=== PATIENT | female | born 1985 | race Caucasian/White ===

== ENCOUNTER 2023-07-27 18:44 | Emergency (ER) | payer OTHER, SELFPAY ==
--- NOTE | 2023-07-27 | ECG_ITS ---
Test Reason : CHEST PAIN Blood Pressure : / mmHG Vent. Rate : 076 BPM Atrial Rate : 076 BPM P-R Int : 154 ms QRS Dur : 082 ms QT Int : 410 ms P-R-T Axes : 053 062 033 degrees QTc Int : 461 ms Normal sinus rhythm Normal ECG No previous ECGs available Referred By: Doreen Torre Electronically Signed By:CRISTELA JERONIMO
--- NOTE | ~2023-07-27 | CT_ITS ---
EXAMINATION: CTA CHEST CT ABDOMEN AND PELVIS WITH CONTRAST CLINICAL INFORMATION: Abdominal pain. Epigastric pain to the back. Pleurisy. COMPARISON: None. TECHNIQUE: A noncontrast localizer was performed, followed by the administration of 85 mL Omnipaque [address] of the chest was then performed. Coronal and sagittal reformatted and 3-D technique MIP images of the chest were completed at the CT scanner and reviewed on the PACS workstation. No adverse effects were reported. Images were then performed through the abdomen and pelvis. Coronal and sagittal reformatted images performed at CT scanner by technologist. [This CT examination was performed using dose optimization techniques as appropriate, variously including the following: *Automated exposure control *Adjustment of mA and/or kV according to patient size (this includes techniques or standardized protocols for targeted exams where dose is matched to indication/reason for exam; i.e. extremities or head) *Use of iterative reconstruction technique] DLP: 983 mGy-cm. FINDINGS: CTA CHEST Vascular: The main pulmonary artery, secondary and tertiary branches of the pulmonary artery are normally opacified with no evidence of pulmonary embolism. The aorta and great vessels are unremarkable. Mediastinum: No mediastinal mass. No significant lymphadenopathy. There is no pericardial effusion. CORONARY ARTERIES: Volume of coronary calcification:None Lungs: The lungs are clear. No nodule or infiltrate. Central bronchial airways open. Fluid: There is no pericardial effusion. There is no pleural effusion. Axilla: No significant lymphadenopathy. CT SCAN ABDOMEN/PELVIS: Liver, Gallbladder and Biliary Tree: The liver is normal in size, shape, and attenuation. No focal hepatic lesion or biliary ductal dilatation is present. Small gallstones layering dependently in the fundus the gallbladder. No edema around the gallbladder. Extrahepatic CBD measures 6 mm. No calcified stone in the bile ducts. Pancreas: Unremarkable. Spleen: Unremarkable. Adrenal Glands: Unremarkable. Kidneys and Ureters: The kidneys are normal in size, shape, and attenuation. No hydronephrosis, hydroureter, or calculi seen. No perinephric stranding. Bladder: Unremarkable. Gastrointestinal Tract: The small and large bowel are unremarkable. The appendix is unremarkable. Abdominal Wall: No significant hernia is appreciated. Lymph Nodes: Normal. Vascular: Unremarkable. Pelvic Viscera: Unremarkable. Osseous Structures: Unremarkable. CT/CT abdomen pelvis w IV con IMPRESSION: CT CHEST: No evidence of pulmonary embolism. No acute change of chest. CT ABDOMEN PELVIS: 1. No acute abnormality the abdomen or pelvis. 2. Cholelithiasis.
[2023-07-27 19:01] VITALS: BP 133/87; BP 135/72; PULSE 88; PULSE 94; RESP 18; TEMP 36.4; O2SAT 99; BMI 34.2
[2023-07-27 19:12] VITALS: PULSE 80
--- NOTE | 2023-07-27 19:25 | ED_ITS ---
HPI - Chest Pain General Chief Complaint: Chest Pain Stated Complaint: chest pain 01/05 Time Seen by Provider: 07/27/23 18:51 Source: patient Mode of arrival: ambulatory Limitations: no limitations History of Present Illness HPI narrative: 37-year-old female healthy presents to ED for intermittent epigastric pain since March that resolved with belching and some GI meds. Patient states today she had epigastric pain that was severe radiating to the back. Patient also states some pleurisy. Patient states symptoms improved with Pepto-Bismol, but came to the ED for evaluation. Patient is still having some epigastric pain, pleurisy, and mild chest discomfort. Patient denies any leg swelling, calf pain, coughing up blood, fever, or chills. Related Data Allergies Allergy/AdvReac Type Severity Reaction Status Date / Time No Known Allergies Allergy Verified 07/27/23 19:17 Review of Systems 2 Review of Systems: Patient states intermittent epigastric pain radiating to back since March. Patient states slight pleurisy. Patient denies any nausea vomiting Yes all other systems are reviewed and are negative Physical Exam 2 Vital Signs: Vital Signs: Last Vital Signs Temp 97.9 F 07/28/23 00:16 Pulse 88 07/28/23 00:16 Resp 18 07/28/23 00:16 BP 138/78 07/28/23 00:16 Pulse Ox 98 07/28/23 00:16 O2 Del Method Room Air 07/28/23 00:16 BMI result Body Mass Index 34.2 Const: General: cooperative, healthy appearing, comfortable, no acute distress, well developed, alert, awake and Physically active O rientation/consciousness: oriented to person, oriented to place, oriented to time and patient oriented x3 HEENT: Head: Yes normal to inspection, Yes No palpable skull fracture present, Yes normocephalic and Yes atraumatic Eyes: General: appearance normal, both eyes and all related structures Neck: Neck: Yes normal visual inspection, Yes full ROM, Yes no lymphadenopathy, Yes no meningeal signs, Yes trachea midline, Yes supple, No anterior neck swelling and No tender Chest: Chest palpation & inspection: normal inspection of the chest and normal palpation of entire chest wall Resp: Effort & Inspection: normal respiratory effort and able to speak in complete sentences Auscultation: clear to auscultation bilaterally Cardio: Jugular venous distension: no JVD Heart sounds: S1 normal heart sound present and S2 normal heart sound present GI: Inspection: Yes normal to inspection Palpation (GI): Tenderness to palpation present (GI) in the epigastrum and in the RUQ, no guarding and not rigid : General: No CVA tenderness and Yes no CVA tenderness Back/Spine/Pelvis: Back: no CVA tenderness, No CVA tenderness and No back tenderness Skin: General skin exam: no rashes or lesions noted, elasticity normal and turgor normal Neuro: General: oriented to person, oriented to place, oriented to time, patient oriented x3, gait normal, tone normal, moves all extremities, Normal light touch and pain sensation, no meningeal signs, no focal motor deficits, CN's II-XI intact bilaterally and normal sensation to monofilament Extrem: Other: Bilateral lower extremities negative for swelling, pitting edema, or calf tenderness General: Yes normal to inspection, Yes full ROM and Yes capillary refill normal Psych: Appearance: grossly normal, well kempt and not disheveled Medications Administered Discontinued Medications Generic Name Dose Route Start Last Admin Trade Name Jase PRN Reason Stop Dose Admin Al Hydroxide/Mg Hydroxide 30 ml 07/27/23 19:23 07/27/23 19:56 Magnesium Hydrox/Alum Hydrox 30 Ml Oral.Susp PO 07/27/23 19:24 30 ml ONCE ONE Administration Famotidine 20 mg 07/27/23 19:18 07/27/23 19:56 Famotidine/Pf 20 Mg/2 Ml Vial IVPUSH 07/27/23 19:19 20 mg ONCE ONE Administration Sodium Chloride 1,000 mls @ 999 mls/hr 07/27/23 19:17 07/27/23 21:12 Ns IV 07/27/23 20:17 Infused .Q1H1M STA Infusion Iohexol 85 ml 07/27/23 21:44 07/27/23 21:44 Iohexol 350 Mg/Ml 100 Ml Infus..Btl IV 07/27/23 21:45 85 ml ONCE ONE Administration Medical Decision Making Medical Decision Making [facility] Narrative: 37-year-old female presents to ED for epigastric pain radiating to back with pleurisy and sometimes intermittent chest pain. Patient denies any leg swelling, calf pain, coughing up blood. Patient states slight improvement with Pepcid. EKG labs D-dimer ordered. 12:01am: 2nd troponin negative. Chest CTA negative for PE or pneumonia. Abdominal CT scan positive for Cholelethias withouth cholecysitis. Patient informed to follow-up with primary care provider. Patient is . Patient can only take motrin. Patient explained worrisome signs and informed to return to the ED she has them Differential Diagnosis Differential Diagnoses: The differential diagnosis associated with the presentation includes (PE, myocardial infarction, GERD, epiglottitis.) Admission/Observation Consideration of admission/observation: Escalation of care including admission/observation considered Lab Data MDM Lab Attestation statement: I reviewed the patient's lab results. 07/27/23 19:21 07/27/23 19:21 Labs: Lab Results 07/27/23 07/27/23 07/27/23 Range/Units 19:21 20:39 23:17 WBC 9.8 (4.8-10.8) X10*3/uL RBC 4.31 (4.20-5.50) X10*6/uL Hgb 12.3 (12.0-16.0) g/dl Hct 36.2 L (37.0-47.0) % MCV 84.0 (80.0-98.0) fL MCH 28.5 (27.0-33.0) pg MCHC 34.0 (31.0-35.0) g/dl RDW 12.9 (11.0-16.0) % Plt Count 249 (160-400) X10*3/uL MPV 10.7 (9.4-12.3) fL Immature Gran % (Auto) 0.3 (0.0-0.4) % Neut % (Auto) 65.4 (45-73) % Lymph % (Auto) 23.7 (20-40) % Camp % (Auto) 8.2 (2-11) % Eos % (Auto) 2.0 (0-4) % Baso % (Auto) 0.4 (0-2) % Lymph # (Auto) 2.3 (1.2-4.9) X10*3/uL Camp # (Auto) 0.8 (0.1-1.2) X10*3/uL Eos # (Auto) 0.2 (0.0-0.4) X10*3/uL Baso # (Auto) 0.0 (0.0-0.2) X10*3/uL Abs Immat Gran (auto) 0.03 (0.00-0.03) X10*3/uL Absolute Neuts (auto) 6.4 (2.0-8.3) x10*3/uL Absolute Nucleated RBC 0.000 (0.0-0.012) X10*3/uL Nucleated RBC % (auto) 0.0 (0.0-0.2) /100WBC PT 11.5 (11.1-13.3) SEC INR 0.9 (0.9-1.1) APTT 35.4 (26.0-36.8) SEC D-Dimer High Sensitivty < 150 NG/ML Sodium 139 (135-145) mmol/L Potassium 3.4 (3.3-5.1) mmol/L Chloride 105 (96-108) mmol/L Carbon Dioxide 24 (22-29) mmol/L Anion Gap 13 (12-20) BUN 13 (9-16) mg/dL Creatinine 0.78 (0.5-1.4) mg/dL Estim Creat Clear Calc 97.7 Estimated GFR > 60 Random Glucose 98 (60-115) mg/dL Calcium 9.3 (8.4-10.2) mg/dL Total Bilirubin 0.4 (0.0-1.0) mg/dL AST 44 H (5-31) U/L ALT 32 H (0-31) U/L Alkaline Phosphatase 95 (39-117) U/L Troponin I High Sens < 2.7 < 2.7 (<3.5-17.0) ng/L Total Protein 7.5 (6.5-8.0) g/dL Albumin 4.3 (3.5-5.0) g/dL Lipase 13 (8-78) U/L Beta HCG, Quant < 2 mIU/mL Urine Color Yellow Urine Appearance Clear Urine pH 7.0 (5.0-9.0) Ur Specific [place] 1.010 (1.005-1.025) Urine Protein Negative (Neg-Trace) mg/dL Urine Glucose (UA) Negative (Negative) mg/dL Urine Ketones Negative (Negative) mg/dL Urine Blood Negative (Negative) Urine Nitrite Negative (Negative) Ur Leukocyte Esterase Negative (Negative) Independent Interpretation I performed an independent interpretation of an: EKG (Normal sinus rhythm. Murmur EKG. Negative) and CT Scan Radiology Impression Discussion of test interpretation with radiology: I have reviewed the radiologist's reading. Independent Historian Clinical information obtained from an independent historian. History obtained from or confirmed by: Other (Patient) External Record Review External record reviewed: Other (Previous notes) Discharge Plan Discharge Clinical Impression: GERD (gastroesophageal reflux disease), Cholelithiasis Patient Disposition: Home, Self-Care Instructions: Gallstones (ED), Gastroesophageal Reflux Disease (ED) Additional Instructions: Recommend follow-up with your primary care provider and Surgeon. Return to the ED immediately for any chest pain, shortness of breath, leg swelling calf pain, coughing up blood, abdominal pain, nausea, vomiting, vomiting green bile, fever, chills, or any other concerning symptoms. You can take [id number] Motrin for pain relief. The patient is taking antacid medication provided by her primary care provider. Referrals: [facility] General Surgeons [Provider Group] (Gallstones.) Stand Alone Forms: Work/School Release Interventions: ED Discharge Assessment Last Done: 07/28/23 00:16 Discharge Date/Time: 07/28/23 00:18 Print Language: Pakistani
[2023-07-27 19:28] LABS: MANUAL DIFF FLAG NO
[2023-07-27 19:31] LABS: Basophils Percent Auto 0.4 % (0-2); Eosinophils Absolute Auto 0.2 X10*3/uL (0.0-0.4); Hematocrit 36.2 % (37.0-47.0); Hemoglobin 12.3 g/dl (12.0-16.0); Imm Gran Abs Auto 0.03 X10*3/uL (0.00-0.03); Imm Gran Pct Auto 0.3 % (0.0-0.4); Lymphocytes Absolute Auto 2.3 X10*3/uL (1.2-4.9); Lymphocytes Percent Auto 23.7 % (20-40); Mean Corpuscular Hemoglobin 28.5 pg (27.0-33.0); Mean Platelet Volume 10.7 fL (9.4-12.3); Monocytes Absolute Auto 0.8 X10*3/uL (0.1-1.2); Monocytes Percent Auto 8.2 % (2-11); Neutrophils Absolute Auto 6.4 x10*3/uL (2.0-8.3); Neutrophils Percent Auto 65.4 % (45-73); Platelet Count 249 X10*3/uL (160-400); Red Blood Count 4.31 X10*6/uL (4.20-5.50); Red Cell Distribution Width 12.9 % (11.0-16.0); White Blood Count 9.8 X10*3/uL (4.8-10.8)
[2023-07-27 19:36] LABS: INTERNATIONAL NORM RATIO 0.9 (0.9-1.1); Prothrombin Time 11.5 SEC (11.1-13.3)
[2023-07-27 19:38] LABS: Partial Thromboplastin Time 35.4 SEC (26.0-36.8)
[2023-07-27 19:45] LABS: D Dimer High Sensitivity < 150 NG/ML
[2023-07-27 19:47] LABS: Alanine Aminotransferase 32 U/L (0-31); Albumin Level 4.3 g/dL (3.5-5.0); Alkaline Phosphatase 95 U/L (39-117); Anion Gap 13 (12-20); Aspartate Amino Transferase 44 U/L (5-31); Bilirubin Total 0.4 mg/dL (0.0-1.0); Blood Urea Nitrogen 13 mg/dL (9-16); Calcium 9.3 mg/dL (8.4-10.2); Carbon Dioxide 24 mmol/L (22-29); Chloride 105 mmol/L (96-108); Creatinine Clr Calc Pharmacy 97.7; Estimated Glomerular Filt Rate > 60; Glucose Random 98 mg/dL (60-115); Lipase 13 U/L (8-78); Potassium 3.4 mmol/L (3.3-5.1); Sodium 139 mmol/L (135-145); Total Protein 7.5 g/dL (6.5-8.0)
[2023-07-27] MEDS: Famotidine/PF 20 MG/2 ML VIAL IVPUSH (19:56)
[2023-07-27] MEDS: 0.9 % Sodium Chloride 1,000 ML 999 ML IV (19:56)
[2023-07-27] MEDS: Magnesium Hydrox/Alum Hydrox 30 ML ORAL.SUSP PO (19:56)
[2023-07-27 19:58] LABS: Troponin-I High Sensitivity < 2.7 ng/L (<3.5-17.0)
--- OUTSIDE RECORDS SUMMARY | 2023-07-27 20:10 | XMS_ITS | Continuity of Care Document ---
Author Organization [facility] Adult Address [address] [place] [address]- Care Team Providers Care Rolling Attendant Name Role Phone Mary Fabian DO Primary Care Physician Encounter [facility] [place] Date(s): 12/18/21 - 01/17/22 [facility] Adult [address] [place], [place] [address] Attending Physician: Ava Jefferson Admitting Physician: Ava Jefferson Referring Physician: AdmtrAva Allergies, Adverse Reactions, Alerts No Known Allergies Medications 1 1 tablet, By Mouth, Daily, 0 Refills, Maintenance, 01/01/21 8:30:00 EDT, Partial fill upon patient request if the prescription is for a schedule II opioid drug. Start Date: 01/01/21 Status: Ordered Social History Social History Type Response Smoking Status Never smoker; Tobacc o user in household: No entered on: 12/28/17 Sex Patient Care team information Personnel Name: Mary Fabian DO Address: Address: [address] [place] [address]
--- OUTSIDE RECORDS SUMMARY | 2023-07-27 20:10 | XMS_ITS | Continuity of Care Document ---
Author Organization [facility] Adult Address [address] [place] [address]- Care Team Providers Care Pigment Furnace Tender Name Role Phone Mary Fabian DO Primary Care Physician [place] [facility] [place]17/22 [facility] Adult [address] [place], [place] [address] Attending Physician: Rashmi Allen Allergies, Adverse Reactions, Alerts No Known Allergies [...] Personnel Name: Mary Fabian DO Address: Address: [address] [place] [address]
--- OUTSIDE RECORDS SUMMARY | 2023-07-27 20:10 | XMS_ITS | Continuity of Care Document ---
Author Organization [facility]av[facility] Address [address] [place] [address]- Care Team Providers Care Quality Assurance Project Manager Name Role Phone Mary Fabian DO Primary Care Physician Encounter [facility] [place] Date(s): 04/16/22 - 05/16/22 [facility] Adult [address] [place] [address]- Allergies, Adverse Reactions, Alerts No Known Allergies [...] on: 12/28/17 Sex Patient Care team information Care Team Personnel Name: Mary Fabian DO Position: Reference Physician Member Role: PCP Address: Address: [address] [place] [address] Care Team Related Persons Name: LIANNE SUERO Address: home [address] [place] [id number]
--- OUTSIDE RECORDS SUMMARY | 2023-07-27 20:11 | XMS_ITS | Continuity of Care Document ---
Author Organization [facility] Adult Address [address] [place] [address]- Care Team Providers Care Skydiving Instructor Name Role Phone Mary Fabian DO Primary Care Physician [phone] Encounter [facility] [place] Date(s): 12/04/21 - 01/03/22 [facility] Adult [address], [place] [address] Allergies, Adverse Reactions, Alerts No Known Allergies [...] Personnel Name: Mary Fabian DO Address: Address: [address] [place] [address]
--- OUTSIDE RECORDS SUMMARY | 2023-07-27 20:11 | XMS_ITS | Continuity of Care Document ---
Author Organization [facility] ter Address [address] [place] [id number]- Care Team Providers Care Political Analyst Name Role Phone Mary Fabian DO Primary Care Physician Encounter [facility] Date(s): 02/27/22 - 02/27/[address] [id number] Discharge Disposition: A-D/C Home Attending Physician: Teodora Chery MD Admitting Physician: Teodora Chery MD Referring Physician: Teodora Chery MD Allergies, Adverse Reactions, Alerts No Known Allergies Medications 1 1 tablet, By Mouth, Daily, 0 Refills, Maintenance, 01/01/21 8:30:00 EDT, Partial fill upon patient request if the prescription is for a schedule II opioid drug. Start Date: 01/01/21 Status: Ordered Vital Signs Most recent to oldest [Reference Range]: 1 2 3 Weight 86.3 kg (02/27/22 9:54 AM) Oxygen Saturation [94-100 %] 100 % (02/27/22 2:15 PM) 100 % (02/27/22 2:00 PM) 100 % (02/27/22 1:45 PM) Pulse Rate [55-90 bpm] 81 bpm (02/27/22 9:54 AM) Blood Pressure [90-138/55-84 mm Hg] 102/60mm Hg (02/27/22 2:15 PM) 98/66mm Hg (02/27/22 2:00 PM) 105/63mm Hg (02/27/22 1:45 PM) Respiratory Rate [16-30 br/min] 11 br/min *L* (02/27/22 2:15 PM) 13 br/min *L* (02/27/22 2:00 PM) 15 br/min *L* (02/27/22 1:45 PM) Temperature [96.8-100.4 DegF] 97 DegF (02/27/22 2:15 PM) 97.5 DegF (02/27/22 1:15 PM) 98.4 DegF (02/27/22 9:54 AM) Liters per Minute 6 L/min (02/27/22 1:15 PM) Mode of Delivery (Oxygen) Room air (02/27/22 2:15 PM) Room air (02/27/22 2:00 PM) Room air (02/27/22 1:45 PM) Blood pressure sites Arm, right (02/27/22 1:15 PM) Arm, left (02/27/22 9:54 AM) Temperature Route Temporal (02/27/22 2:15 PM) Temporal (02/27/22 1:15 PM) Temporal (02/27/22 9:54 AM) Dry Weight 86.3 kg (02/27/22 9:54 AM) Weight Obtained Via Standing scale (02/27/22 9:54 AM) Dry Weight Obtained Via Standing scale (02/27/22 9:54 AM) Social History Social History Type Response Smoking Status Never smoker; Tobacc o user in household: No entered on: 12/28/17 Sex Note * Shahnaz Driver RN: PERFORM Event Display: Discharge/Transfer Note Hospital Authored Date: [id number] Nursing Discharge Note Entered On: 02/27/2022 14:43 EST Performed On: 02/27/2022 14:42 EST by Shahnaz Driver RN Nursing Discharge Note 2 Discharge Time : 02/27/2022 14:42 EST Discharge Level of Care at Discharge : Home/Alf/Foster Care Patient Left Unit Via : Wheelchair Patient Accompanied Off Unit with : Responsible adult DC Instructions Provided & Signed by Pt : Yes Patient Understands D/C Instructions : Yes Patient Instructions Discharge Signed : Yes Did Pt have Specialty Bed or Wound Vac : No Shahnaz Driver RN - 02/27/2022 14:42 EST * Shahnaz Driver RN: PERFORM Event Display: Patient Education/Instruction Authored Date: [id number] Inpatient Adult Discharge Instructions [place] [id number] Name: BRUNO SUERO : 1985 Visit: 02/27/2022 09:34:00 Current Date: 02/27/2022 14:17 Account: [id number] Inpatient Adult Discharge Instructions We would like to thank you for allowing us to assist you with your healthcare needs. The following includes patient education materials and information regarding your injury/illness. Our entire staffstrives to provide an excellent experience for our patients and their families. PLEASE ENSURE YOU FOLLOW-UP PER THE INSTRUCTIONS BELOW! ?? YOUR OPINION IS IMPORTANT TO US! Please complete the survey you may receive by mail or email. Your feedback will be used to make improvements to the healthcare experiences of our patients and their families. Surveys are administered by [employer]. ?? If further treatment with your primary care physician or another doctor is recommended, it is important for you to keep the appointment. Call your primary care physician or return to the Emergency Department immediately if your condition worsens, fails to improve, or new symptoms develop. If you need to find a doctor, you can call [facility] [employer] for a referral at [phone] or toll free at [phone] or log in to [email or web address].. ?? You can view and manage your care through the patient portal or by using a health care marvin of your choosing. [employer] is a website that allows you to securely view your medical information including your hospital discharge summary, office visit summaries, medications and follow-up visits. You can also request appointments, renew medications, and request access to your medical information using a health care marvin of your choosing, or just ask a question. You can enroll at [email or web address] or register during your next office visit. You have been discharged from [facility], Patient Care Unit: [facility]. If you have any questions regarding these instructions after you leave, please call us and we will be happy to assist you. [facility] Your Care Team Attending Physician Miri REINOSO, Teodoar Consulting Providers Alexander REINOSO, Sade Chery MD, Teodora Discharging Providers Alina Conner DO Reason for Admission MISSED AB D AND CDS CS Tests Performed Below is a partial list of the tests performed during your hospitalization. You may have had other tests and procedures not included in this list. Please discuss all test results with your provider. Primary Care Provider Mary Fabian DO Advance Directive Health Care Proxy on File No No qualifying data available. Discharge Vitals Temperature: 97.5 DegF Weight: 86.3 kg Pulse Rate: 81 bpm ?? Respiratory Rate:??13 br/min??Low ?? Systolic Blood Pressure: 98 mm Hg ?? Diastolic Blood Pressure: 66 mm Hg ?? Oxygen Saturation: 100 % ?? Studies Pending All tests and labs ordered during this hospital stay have been completed unless listed below. Please discuss all pending results with your provider listed above in these instructions. ?? Pathology Tissue Request () What to do next Instructions From Your Doctor Discharge Orders Instructions from your Care Team FOLLOW POSTOP INSTRUCTIONS You Need to Schedule the Following Appointments Follow Up with??Teodora Chery When??Within 2 to 3 weeks Where: [address] [place] [address] [address] [facility] [employer] [address]- Business (1) Follow Up with??Mary Fabian When??In 0 days Where: 2 [facility] [address] [place] [address]- Business (1) Discharge Medications BRUNO SUERO :1985 Visit Date:02/27/2022 Medications: Please continue your medications until treatment is completed or stopped by your provider. Medications not listed below should be discontinued. Discuss any questions related to medications with your provider. What How Much When Instructions Next Dose Unchanged Multivitamin, ( 1) 1 tab(s) Oral Daily Test Results Below is a partial list of the most recent Laboratory test results done prior to this discharge. You may have had other tests and procedures not included in this list. Please discuss all test resultswith your provider. Allergies (NKA means No Known Allergies) NKA Problems Active Problems??(1) ?? Education Materials Below is the list of Educational Leaflet Providered with your Discharge Instructions. Surgery Medical Daystay Surgical Overnight Discharge Instructions?? Valuables and Belongings I fully understand and agree that [facility] accepts no responsibility for all my personal property including clothing, toilet articles, radios, jewelry, dentures, hearing aids, rings, money, or any other property that is in my possession or is brought to me after admission. I understand certain valuables may be placed in a hospital safe for a short period of time. I understand that the hospital is not liable for loss or damage due to accident, fire, or other natural occurrence while said property is in the safe. I accept full responsibility for any personal property that I keep with me, and will not hold the hospital responsible in case of loss or disappearance. I acknowledge that i have been encouraged to send valuables and belongings home. ?? Review of Valuable and Belonging List: With patient Date for Pt to Sign Valuables/Belongings: 02/27/22 09:54:00 ?? Valuables & Belongings ?? Clothes Electronic devices Jewelry Monetary Items Personal devices Miscellaneous Medications (Valuables) Valuables at Bedside Pants, Shirt, Shoes, Undergarments Cell phone, Other: headphones ? Glasses ? Valuables Sent Home ? Valuables Sent to Security ? Other Discharge Information ? Pulmonary Rehab Status?? Pulmonary Rehab Discharge Status?? Respiratory Rate:??13 br/min??Low ? Common Emergency Awareness Tips IS IT A STROKE? Act FAST and Check for these signs: FACE Does the face look uneven? ARM Does one arm drift down? SPEECH Does their speech sound strange? TIME Call at any sign of stroke ?? Heart Attack Signs Chest discomfort: Most heart attacks involve discomfort in the center of the chest and lasts more than a few minutes, or goes away and comes back. It can feel like uncomfortable pressure, squeezing, fullness or pain. Discomfort in upper body: Symptoms can include pain or discomfort in one or both arms, back, neck, jaw or stomach. Shortness of breath: With or without discomfort. Other signs: Breaking out in a cold sweat, nausea, or lightheaded. Remember, MINUTES DO MATTER. If you experience any of these heart attack warning signs, call to get immediate medical attention! ?? Smoking can increase your chances of developing chronic health problems and can cause harmful effects to other family members in your house. If you smoke, you are strongly encouraged to quit. Please call [facility] [employer] at [phone] or [phone] ([phone]) or log in to [email or web address] for referrals to smoking cessation programs. ?? The National Suicide Prevention Hotline is available 19/10 if you or someone you know needs to find a reason to keep living. By calling 4-219-396-[employer] (5591) you'll be connected to a skilled, trained counselor at a crisis center in your area. INPATIENT DISCHARGE INSTRUCTIONS SIGNATURE PAGE BRUNO SUERO Location:[facility] Registration Date and Time:02/27/2022 09:34 EST Primary Care Physician: Mary Fabian DO, I BRUNO SUERO, have received the above patient education materials/instructions and have verbalized understanding. If ambulance or transport services are being used I further acknowledge being given a choice of service. ?? If you need to contact me, please call me at this number: . Patient/Change Coordinator Name: Patient/Change Coordinator Signature: Relationship to Patient: Witness Name/Signature: Date: * Shahnaz Driver RN: PERFORM, SIGN, VERIFY Event Display: Patient Education Handout Authored Date: * Shahnaz Driver RN: PERFORM Event Display: Patient Education Leaflets Authored Date: Surgery Medical Daystay Surgical Overnight Discharge Instructions ?? 295 Medical Daystay/Surgical Overnight Discharge Instructions ? Since your coordination and judgment may be altered by medication and/or anesthesia, a responsible adult must drive you home from the hospital. ? If you have received medication for pain or sedation while under our care, you should not drive, operate machinery, drink alcohol, or sign any legal documents for 24 hours.?? You should have someone with you at home tonight. ? Remain at home the day of discharge.?? You may be up and about unless otherwise instructed by your physician. ? You may resume your daily prescription medication schedule.?? Any depressant medication should be avoided for 24 hours unless otherwise instructed by your surgeon or anesthesiologist. ? Call your physician for a follow-up appointment.? If you experience unusual or severe pain not relied by your pain medication, excessive bleedingor drainage, persistent nausea and vomiting, excessive swelling or redness, foul odor from incisionsite or fever over 100.6F, you need to call your physician. ? A follow-up phone call by a nurse will be made the day after your procedure.?? If you have stayed with us over night, you will not be receiving a follow-up phone call. ? Nausea and vomiting are a common side effect of prescription pain medication.?? We recommend that pills are not taken on an empty stomach.?? While taking any prescription pain medication you should not drive or drink alcohol. ? Patient Care team information Care Team Personnel Name: Mary Fabian DO Position: Reference Physician Member Role: PCP Address: Address: [address] [place] [id number] [place] [address] Care Team Related Persons Name: LIANNE SUERO Address: home [address] [place] [id number]
[2023-07-27 20:20] LABS: HCG Quantitative < 2 mIU/mL
[2023-07-27 20:43] VITALS: RESP 18
[2023-07-27 20:44] LABS: Appearance Urine Clear; Color Urine Yellow; Glucose Urine UA Negative (Negative); Leukocyte Esterase Urine Negative (Negative); Nitrite Urine Negative (Negative); Urine Blood Negative (Negative); Urine Ketones Negative (Negative); Urine Protein Negative (Neg-Trace)
[2023-07-27] MEDS: iohexoL 350 MG/ML 100 ML INFUS..BTL 85 ML IV (21:44)
[2023-07-27 23:45] LABS: Troponin-I High Sensitivity < 2.7 ng/L (<3.5-17.0)
[2023-07-28 00:16] VITALS: BP 138/78; PULSE 88; RESP 18; TEMP 36.6; O2SAT 98
== END 2023-07-28 00:18 | disposition home or self-care (01) ==
PROVIDERS: Physician Assistant; Emergency Provider Emergency Medicine
DX: K21.9 Gastro-esophageal reflux disease without esophagitis (principal); K80.20 Calculus of gallbladder without cholecystitis without obstruction
CPT/HCPCS: 36415; 71275; 74177; 80053; 81003; 83690; 84484; 84702; 85025; 85379; 85610; 85730; 93005; 96361; 96374; 99284; 99285; Q9967

== ENCOUNTER → 2023-07-27 18:54 | Outpatient (BNV) | payer OTHER, SELFPAY | PROVIDERS: Emergency Provider Emergency Medicine; Visit Provider Internal Medicine | DX: R07.9 Chest pain, unspecified (principal) | CPT/HCPCS: 93010 ==

== ENCOUNTER 2023-08-12 14:19 | Outpatient (AMB) | payer OTHER, SELFPAY ==
--- NOTE | 2023-08-12 14:26 | MHC.OFFVIS ---
Vital Signs 08/12/23 14:33 Height 5 ft 1 in Weight 178 lb BMI 33.6 BP 142/87 H Blood Pressure Location Lt brachial Position Sitting Pulse 113 H Intake Visit Reasons: cholelithiasis Intake Note: Patient is seen in office for ER follow up visit, following cholelithiasis. Pt c/o: after delivering her daughter in 03/2023 started experiencing pain, burping, had multiple episodes, pain radiates to the back, denies N/v/d/c ER & CT:07/27/23 Cigarette Examiner Required: No Accompanied by: Self / Same As Patient Allergies No Known Allergies Allergy (Verified 08/12/23 14:29) HPI Comments Details: 37-year-old female patient presenting with complaints of abdominal pain in the epigastrium and right upper quadrant. The pain began approximately 2 weeks after delivering her 1st child in March 2023. The initial episodes were short-lived and resolved spontaneously. More recently the pain has become more severe and longer lasting. She was evaluated in the emergency department and determined to have multiple gallstones within the gallbladder. After her most recent episode, she developed dark urine and felt her eyes turned yellow. This resolved after 48 hours. She presents today to discuss possible cholecystectomy. She has been on a low-fat, restricted diet and has remained relatively asymptomatic. [facility] Surgical History Hx of section Social History Alcohol intake: former Patient Tobacco Use Status: Never used Tobacco Review of Systems Const All systems reviewed & are unremarkable except as noted in HPI and below Physical Exam Vital Signs: Last Vital Signs Pulse 113 H 08/12/23 14:33 BP 142/87 H 08/12/23 14:33 BMI result Body Mass Index 33.6 Const General: cooperative and no acute distress Nutritional Appearance: well nourished Orientation/consciousness: patient oriented x3 Limitations: no limitations HEENT Head: Yes normocephalic and Yes atraumatic Ears: hearing grossly normal bilaterally Resp Effort & Inspection: normal respiratory effort, no audible wheezes, no cough and no respiratory distress Cardio Jugular venous distension: no JVD GI Inspection: Yes normal to inspection Palpation (GI): Soft to palpation, nontender, no guarding and not rigid Skin Other: Warm, dry, no rash Neuro General: patient oriented x3 Extrem General: Yes no clubbing, cyanosis or edema Assessment & Plan Assessment & Plan (1) Biliary colic: Code(s): K80.50 - Calculus of bile duct without cholangitis or cholecystitis without obstruction Category: Medical (2) Cholelithiasis: Code(s): K80.20 - Calculus of gallbladder without cholecystitis without obstruction Category: Medical Qualifiers: Cholelithiasis location: gallbladder Cholecystitis presence: without cholecystitis Biliary obstruction: without biliary obstruction Qualified Code(s): K80.20 - Calculus of gallbladder without cholecystitis without obstruction Plan 37-year-old female patient with recurring episodes of biliary colic increasing in severity and duration since March 2023. On examination her abdomen is now soft with a negative William sign. CT abdomen and pelvis confirmed multiple gallstones within the gallbladder without evidence of cholecystitis. I recommended a laparoscopic or possible open cholecystectomy on an elective basis. After discussion of the procedure, risks, and alternatives, she consents to the surgery. Coding Level of Care Code New Pt Level 4 (44540) Diagnoses Biliary colic K80.50 Calculus of gallbladder without cholecystitis without obstruction K80.20 Cholelithiasis location: gallbladder Cholecystitis presence: without cholecystitis Biliary obstruction: without biliary obstruction
[2023-08-12 14:33] VITALS: BP 142/87; PULSE 113; BMI 33.6
== END 2023-08-12 15:04 | disposition home or self-care (01) ==
PROVIDERS: Visit Provider Surgery
DX: K80.50 Calculus of bile duct without cholangitis or cholecystitis without obstruction (principal); K80.20 Calculus of gallbladder without cholecystitis without obstruction
CPT/HCPCS: 99204

== ENCOUNTER → 2023-08-12 14:19 | Outpatient (BNVA) | payer OTHER, SELFPAY | PROVIDERS: Visit Provider Surgery ==

== ENCOUNTER 2023-09-08 07:03 | Day surgery (SDC) | payer OTHER, SELFPAY ==
[2023-09-06 11:00] VITALS: BMI 33.6
--- NOTE | 2023-09-06 12:21 | P.CONAN_ITS ---
Documented by User: Yaritza Daley NP 09/06/23 12:22 HPI - Anesthesia Eval Consult details Narrative: 37yo F for Cholecystectomy Laparoscopic, possible open PMFSH Active Problems Active Problems: All Active Problems Biliary colic (Acute) Past Medical History Medical History (Updated 09/06/23 @ 11:01 by Janae Johnson RN) Biliary colic Surgical History Surgical History Hx of section Social History Social History Alcohol intake: former Patient Tobacco Use Status: Never used Tobacco Are you DNR?: No Advance Directives: No Advance Directives Information Provided: Yes Meds Allergies Allergy/AdvReac Type Severity Reaction Status Date / Time No Known Allergies Allergy Verified 08/12/23 14:29 Home Medications ?Medication ?Instructions ?Recorded ?Confirmed ?Last Taken ?Type vits no.130-ferrous fum 1 tab PO DAILY 09/06/23 09/06/23 Unknown History 27 mg iron-folic acid 800 mcg tablet ( Vitamin) famotidine 20 mg tablet (Pepcid) 20 mg PO BID 09/08/23 09/08/23 Unknown History Exam Height,Weight and Vital Signs: Height 5 ft 1 in Weight 80.739 kg Pertinent Lab Results Pertinent Lab Results: Laboratory Tests 07/27/23 19:21 WBC 9.8 Hgb 12.3 Hct 36.2 L Plt Count 249 Sodium 139 Potassium 3.4 Chloride 105 Carbon Dioxide 24 BUN 13 Creatinine 0.78 Narrative Narrative: EKG 06/2023 Vent. Rate : 076 BPM Atrial Rate : 076 BPM P-R Int : 154 ms QRS Dur : 082 ms QT Int : 410 ms P-R-T Axes : 053 062 033 degrees QTc Int : 461 ms Normal sinus rhythm Normal ECG No previous ECGs available Assessment and Plan Assessment Anesthesia Assessment: Chart Reviewed Documented by User: Marco Aguirre MD 09/08/23 09:13 [facility] Past Medical History Medical History (Updated 09/06/23 @ 11:01 by Janae Johnson RN) Biliary colic Family History Family history of problems with anesthesia: No Surgical History Surgical History Hx of section History of Problems with Anesthesia: No Social History Social History Alcohol intake: former Patient Tobacco Use Status: Never used Tobacco Are you DNR?: No Advance Directives: No Advance Directives Information Provided: Yes Meds Allergies Allergy/AdvReac Type Severity Reaction Status Date / Time No Known Allergies Allergy Verified 08/12/23 14:29 Home Medications ?Medication ?Instructions ?Recorded ?Confirmed ?Last Taken ?Type vits no.130-ferrous fum 1 tab PO DAILY 09/06/23 09/06/23 Unknown History 27 mg iron-folic acid 800 mcg tablet ( Vitamin) famotidine 20 mg tablet (Pepcid) 20 mg PO BID 09/08/23 09/08/23 Unknown History Exam Airway Mallampati Class: I TM Dist: >3cm Neck ROM: Full Loose/Missing/Broken Teeth: No Heart: rrr Lungs: cta Assessment and Plan Assessment Anesthesia Assessment: Anesthesia Plan Discussed Final Anesthetic Review Family History of Problems with Anesthesia: No History of Problems with Anesthesia: No NPO: Yes ASA Class: II Final Preanesthetic Review: No Changes in Pt Med Stat, Meds/Allgs Chart Reviewed, Consent Obtained/Reviewed and Anes Risks/Benef Reviewed Patient Risk: Intermediate Procedure Risk: Intermediate Anesthetic Plan Anesthetic Plan: GA Disposition: Standard PACU
[2023-09-08] VITALS (10 sets, daily range): BP systolic 85–138; BP diastolic 49–78; PULSE 52–90; RESP 16–18; TEMP 36.4–36.6; O2SAT 96–99
--- OUTSIDE RECORDS SUMMARY | 2023-09-08 07:05 | XMS_ITS | Continuity of Care Document ---
Author Organization [facility] ter Address [address] [place] [id number] Care Team Providers Care Structural Analysis Engineer Name Role Phone Mary Fabian DO Primary Care Physician [place] [facility] [place] - 02/19/[address] [address] Discharge Disposition: A-D/C Home Attending Physician: Giles Muniz MD Admitting Physician: Giles Muniz MD Referring Physician: Giles Muniz MD Allergies, Adverse Reactions, Alerts No Known Allergies Medications 1 1 tablet, By Mouth, Daily, 0 Refills, Maintenance, 01/01/21 8:30:00 EDT, Partial fill upon patient request if the prescription is for a schedule II opioid drug. Start Date: 01/01/21 Status: Ordered Procedures Procedure Date Related Diagnosis Body Site Status D&C - Dilatation and curettage 01/10/21 Completed Vital Signs Most recent to oldest [Reference Range]: 1 Weight 83.5 kg (02/18/22 9:43 PM) Oxygen Saturation [94-100 %] 99 % (02/18/22 9:43 PM) Pulse Rate [55-90 bpm] 96 bpm *H* (02/18/22 9:43 PM) Blood Pressure [90-138/55-84 mm Hg] 132/ 74mm Hg (02/18/22 9:43 PM) Respiratory Rate [16-30 br/min] 18 br/mi n (02/18/22 9:43 PM) Temperature [96.8-100.4 DegF] 98.8 DegF (02/18/22 9:43 PM) Mode of Delivery (Oxygen) Room air (02/18/22 9:43 PM) Blood pressure sites Arm, right (02/18/22 9:43 PM) Temperature Route Oral (02/18/22 9:43 PM) Dry Weight 83.5 kg (02/18/22 9:43 PM) Weight Obtained Via Standing scale (02/18/22 9:43 PM) Dry Weight Obtained Via Standing scale (02/18/22 9:43 PM) Social History Social History Type Response Smoking Status Never smoker; Tobacc o user in household: No entered on: 12/28/17 Sex Note * Sade Rowe RN: PERFORM Event Display: Discharge/Transfer Note Hospital Authored Date: [id number] Nursing Discharge Note Entered On: 02/19/2022 1:13 EST Performed On: 02/19/2022 1:13 EST by Sade Rowe RN Nursing Discharge Note 2 Discharge Time : 02/19/2022 0:35 EST Discharge Level of Care at Discharge : Home/Longterm/Foster Care Patient Left Unit Via : Ambulatory Patient Accompanied Off Unit with : Other: self DC Instructions Provided & Signed by Pt : Yes Patient Understands D/C Instructions : Yes Patient Instructions Discharge Signed : Yes Did Pt have Specialty Bed or Wound Vac : No Sade Rowe RN - 02/19/2022 1:13 EST * Event Display: Discharge/Transfer Note Hospital Authored Date: [id number] * Sade Rowe RN: PERFORM Event Display: Patient Education/Instruction Authored Date: [id number] Inpatient Adult Discharge Instructions [address] [address] Name: BRUNO SUERO : 1985 Visit: 02/18/2022 21:32:00 Current Date: 02/19/2022 00:26 Account: [id number] Inpatient Adult Discharge Instructions We would like [...] and their families. Surveys are administered by [employer] ?? If further treatment with your primary care physician or another doctor is recommended, it is important for you to keep the appointment. Call your primary care physician or return to the Emergency Department immediately if your condition worsens, fails to improve, or new symptoms develop. If you need to find a doctor, you can call [facility] ecomom for a referral at [phone] or toll free at [phone].maBVTHZM ([phone]) or log in to [email or web address] [email or web address].. ?? You can view and manage your care through the patient portal or by using a health care marvin of your choosing. [employer] is a website that allows you to securely view your medical information including your hospital discharge summary, office visit summaries, medications and follow-up visits. You can also request appointments, renew medications, and request access to your medical information using a health care marvin of your choosing, or just ask a question. You can enroll at [email or web address] or register during your next office visit. You have been discharged from [facility], Patient Care Unit: WETU1. If you have any questions regarding these instructions after you leave, please call us and we will be happy to assist you. [facility] Your Care Team Attending Physician Giles Muniz MD Tests Performed Below is a partial list of the tests performed during your hospitalization. You may have had other tests and procedures not included in this list. Please discuss all test results with your provider. Type and Screen Primary Care Provider Mary Fabian DO Advance Directive Health Care Proxy on File No No qualifying data available. Discharge Vitals Temperature: 98.8 DegF Weight: 83.5 kg Pulse Rate:??96 bpm??High ?? Respiratory Rate: 18 br/min ?? Systolic Blood Pressure: 132 mm Hg ?? Diastolic Blood Pressure: 74 mm Hg ?? Oxygen Saturation: 99 % ?? Studies Pending All tests and labs ordered during this hospital stay have been completed unless listed below. Please discuss all pending results with your provider listed above in these instructions. ?? No incomplete studies found What to do next Instructions From Your Doctor Discharge Orders Scheduled Follow-Up Appointments Wednesday 1:30 PM EST ?? Where: [facility] You Need to Schedule the Following Appointments Follow Up with??[facility] [phone] When?? Follow Up with??Follow up with [facility] scheduled next week When?? Discharge Medications BRUNO SUERO :1985 Visit Date:02/18/2022 Medications: Please continue your medications until treatment [...] Please discuss all test resultswith your provider. RHIG Available - IS (02/18/2022) RHIG LOT # - [id number] (02/18/2022) Type and Screen (02/18/2022) ???Blood Type - O Negative???Antibody Screen - Negative Allergies (NKA means No Known Allergies) NKA Problems Active Problems??(1) ?? Education Materials Below is the list of Educational Leaflet Providered with your Discharge Instructions. If You Are Rh Negative?? Rho(D) Immune Globulin Prefilled Syringe?? Missed Miscarriage?? Valuables and Belongings I fully understand and agree that [facility] accepts no responsibility for all my personal [...] encouraged to send valuables and belongings home. ? Other Discharge Information ? Pulmonary Rehab Status?? Pulmonary Rehab Discharge Status?? Respiratory Rate: 18 br/min ? Common Emergency Awareness Tips IS IT [...] are strongly encouraged to quit. Please call [facility] eSNF Link at [phone] or 6-756-966[employer] ([phone]) or log in to [email or web address] for referrals to smoking cessation programs. ?? The National Suicide Prevention Hotline is available 19/10 if you or someone you know needs to find a reason to keep living. By calling 2-490-446-Loftware (6346) you'll be connected to a skilled, trained counselor at a crisis center in your area. INPATIENT DISCHARGE INSTRUCTIONS SIGNATURE BRUNO MENDOZA Location:[facility] Registration Date and Time:02/18/2022 21:32 EST Primary Care Physician: Mary Fabian DO, I BRUNO SUERO, have received the above patient education materials/instructions and have verbalized understanding. If ambulance or transport services are being used I further acknowledge being given a choice of service. ?? If you need to contact me, please call me at this number: . Patient/Human Resources Executive Name: Patient/Human Resources Executive Signature: Relationship to Patient: Witness Name/Signature: Date: * Sade Rowe RN: PERFORM, SIGN, VERIFY Event Display: Patient Education Handout Authored Date: [id number] * Sade Rowe RN: PERFORM Event Display: Patient Education Leaflets Authored Date: [id number] If You Are Rh Negative ?? [address] If You Are Rh Negative If you are and your blood is Rh negative, you need to be treated with medicine. You need this treatment even if you miscarry or don???t deliver the baby. This is to protect the health of anybaby you have in the future. What is the treatment? The treatment is a shot of medicine. The medicine is called Rho(D) immune globulin. This stops Rh antibodies from forming. The shot won???t harm you or your baby. ?? When are you treated? If your blood has not made Rh antibodies, you???ll be given the medicine at these times: ??? During week 28 of your ??? Any time there???s a chance that your baby's blood has mixed with yours ??? If you have a test called amniocentesis ??? If you have vaginal bleeding before 28 weeks A Rho(D) immune globulin injection protects against Rh disease in this and future pregnancies. ?? After you give After you give , your baby???s blood will be tested. If their blood is Rh positive, you???ll be given the medicine again in 3 days. If their blood is Rh negative, you won???t need the medicine until your next . ?? If you already have Rh antibodies If your blood has antibodies, this is called Rh sensitization. Rho(D) immune globulin can???t protect the baby. You and your baby will need special care during . This may include extra tests. Your healthcare provider will tell you what to expect. ?? Preventing future problems Your risk of making Rh antibodies rises with each . This is true even if you don???t deliver a baby. Your body can make Rh antibodies even if you don???t give . This includes if you have an ectopic . This is when the fertilized egg is outside the uterus. It's true for a that ends in miscarriage or . You will still need the Rho(D) immune globulin medicine. This is to prevent problems in any future . ?? Last Reviewed Date: 2021 ?? [employer]. All rights reserved. This information is not intended as a substitute for professional medical care. Always follow your healthcare professional's instructions. ?? * Sade Rowe RN: PERFORM Event Display: Patient Education Leaflets Authored Date: [id number] Rho(D) Immune Globulin Prefilled Syringe ?? 43141-5 Rho(D) Immune Globulin Prefilled Syringe Brands: HyperRHO, MICRhoGAM, RhoGAM, Rhophylac Uses This medicine is used for the following purposes: ??? autoimmune disorder ??? blood transfusion ???immune suppression ?? Instructions This medicine is given as an injection into a muscle. This medicine should be given by a trained health care provider. ?? Cautions Speak with your health care provider before receiving any vaccinations. ?? Side Effects The following is a list of some common side effects from this medicine. Please speak with your doctor about what you should do if you experience these or other side effects. ??? fever ??? pain, redness, swelling near injection ??? pain near injection site A few people may have an allergic reaction to this medicine. Symptoms can include difficulty breathing, skin rash, itching, swelling, or severe dizziness. If you notice any of these symptoms, seek medical help quickly. ?? Extra Please speak with your doctor, nurse, or pharmacist if you have any questions about this medicine. ?? IMPORTANT NOTE: This document tells you briefly how to take your medicine, but it does not tell youall there is to know about it. Your doctor or pharmacist may give you other documents about your medicine. Please talk to them if you have any questions. Always follow their advice. The display and use of this drug information is subject to Terms of Use. Copyright(c) 2021 [employer]. ?? [employer]. All rights reserved. This information is not intended as a substitute for professional medical care. Always follow your healthcare professional's instructions. ?? * Sade Rowe RN: PERFORM Event Display: Patient Education Leaflets Authored Date: [id number] Missed Miscarriage ?? [id number] Missed Miscarriage Today's exams show that you have had a miscarriage. This is the unplanned end of a weeks. When a miscarriage happens, you???re likely to have a wide range of feelings. Missed miscarriage means the embryo or fetus dies, but does not pass out of the uterus. Sometimes dark brown spotting occurs. There is no heartbeat or growth of the fetus. It???s important to know that you did not cause this to happen. Miscarriage is very common. About 1or 2 out of every [address] Miscarriage usually takes place in the first 10 weeks after conception. It may happen before you know you are . It may happen for many reasons. Often the cause is not known. Miscarriage is not your fault. It didn???t happen because you did something wrong. Sex or exercise does not cause a miscarriage. These activities are safe unless your healthcare provider tells you tostop. Even a minor fall won???t cause a miscarriage. You still have some tissue from the in your uterus. Because of this, you may have some bleeding. It might be light spotting. Or it may be as heavy as a period. You may have some cramping. In most cases, all of the tissue will pass out by itself. Then nothing else needs to be done. In somecases, tissue stays in the uterus. It must be removed. This is done to stop bleeding and prevent inf ection. After you have recovered, you should be able to get again. Before trying, talk with your healthcare provider. Home care After you go home: ??? You may not feel well for a few days. Your body is going through changes. You will have mood swings. ??? You may have some cramping and bleeding, but it shouldn???t be severe. ??? You may pass tissue. It may appear as a 1-inch or larger piece of sanches or pink tissue. ??? When you are ready, you can start to go back to your normal routine. Until the bleeding stops fully, to prevent infection: ??? Don???t have sex until your healthcare provider says it???s OK. ??? Don???t use tampons. Use pads instead. ??? Don???t use douche. Having a miscarriage is stressful and upsetting. It's natural to feel sadness or grief. Partners grieve, too. It may help to talk about your feelings with family, friends, a counselor, or configuration management advisor. ?? Follow-up care Follow up with your healthcare provider as advised. If you had an ultrasound, a radiologist will look at it. You will be told of any results that may affect your care. If tissue has not passed from your vagina in the next 5 days, call your healthcare provider. You will need another exam. Your provider might need to take out the tissue with surgery. This is toprevent infection in your uterus. Or you may be given medicine to take at home. This will help the rest of the tissue come out of your body. ?? Call 911 Call 911 if you have any of these: ??? Severe pain and very heavy bleeding ??? Severe lightheadedness, passing out, or fainting ??? Fast heart rate ??? Trouble breathing ??? Confusion ??? Trouble waking up ?? When to get medical care Call your healthcare provider right away if you have any of these: ??? Heavy bleeding that soaks 1 pad an hour over 3 hours ??? Fluid from your vagina that smells bad ??? Fever of 100.4??F (38??C) orhigher ??? Pain in your lower belly (abdomen) that gets worse ??? Weakness or dizziness ??? Passinganything that looks like body tissue from your vagina. Save it in a clean container. Bring it to your provider. ?? Last Reviewed Date: 2021 ?? 6484-6885 [employer]. All rights reserved. This information is not intended as a substitute for professional medical care. Always follow your healthcare professional's instructions. ?? Patient Care team information Care Team Personnel Name: Mary Fabian DO Position: Reference Physician Member Role: PCP Address: Address: [address] [place] [address] Care Team Related Persons Name: LIANNE SUERO Address: home [address] [place] [address]
[2023-09-08 07:26] LABS: UPreg QC Valid YES; Urine Pregnancy NEGATIVE (NEGATIVE)
[2023-09-08] MEDS: Lactated Ringers 1,000 ML 100 ML IVCONT (07:36)
--- NOTE | 2023-09-08 09:05 | MHC.SHP ---
Pre-Procedural Eval Section A - 24 Hr Update-Section A only Date of Service: 09/08/23 The patient is an INPATIENT: Yes Changes since office visit: Yes Patient answered all questions; No Cold of Flu in the past 2 weeks, No New Medical Problems and No Changes in Medication The patient has been examined within 24 hours of the surgical procedure. The History & Physical has been completed within 30 days and I have reviewed it.: Yes Section B - Complete if H&P > 30 days Chief Complaint: Calculus of bile duct without cholangitis or todd Allergies: Allergies Allergy/AdvReac Type Severity Reaction Status Date / Time No Known Allergies Allergy Verified 08/12/23 14:29 Plan Diagnosis/Plan: Unchanged I have reviewed the history and physical and performed a pertinent physical examination on my patient. No changes have occurred unless specified. Time Spent With Patient Time: Total time managing care of this patient today ____ minutes.
--- NOTE | 2023-09-08 10:47 | P.OP_ITS ---
Operative Note Operative Note Date of Service: 09/08/23 Narrative: Preoperative diagnosis: Biliary Colic, Cholelithiasis Postoperative diagnosis: Same Procedure: Laparoscopic cholecystectomy Surgeon: Chip Hastings MD Post Anesthesia Room Nurse: ZAHRA Gomez Anesthesia: General endotracheal Indications for procedure:37-year-old female patient recently presenting with complaints of abdominal pain right upper quadrant found to have evidence of a passed common bile duct stone presenting today for elective laparoscopic cholecystectomy. Operative findings: Normal appearing gallbladder with multiple gallstones within the gallbladder. Specimen: gallbladder Estimated blood loss: Less than 2 mL Complications: none Procedure details: Patient was brought to the OR and placed in a supine position. After administering general anesthesia the patient's abdomen was prepped with ChloraPrep and draped in a sterile fashion. A surgical time-out was called the consent confirmed. Patient received preoperative antibiotics and Venodyne boots were in place. Local anesthesia consisting of 0.5% Sensorcaine without epinephrine was infiltrated in a periumbilical region. A 5 mm incision was made above the umbilicus in a transverse fashion. The Veress needle was then inserted while elevating abdominal cavity with towel clips. After positive drop test the abdomen was insufflated to a pressure of 15 mm of mercury. The Veress needle was then removed and a 5 mm trocar inserted. The camera was inserted in the abdomen explored. A 12 mm trocar was then placed in the epigastrium. Two 5 mm trocars placed in the right upper quadrant by the senior office support assistant sosa. The patient was placed in reverse Trendelenburg positioning and rotated to the left. The gallbladder was grasped with the fundus and retracted cephalad by the senior office support assistant sosa. The infundibulum was then grasped and retracted away from the liver bed, also by the senior office support assistant sosa. The Dolphin dissected was then used by the surgeon to dissect the peritoneum off the infundibulum to reveal the junction with the cystic duct. Cystic artery was noted slightly medial and posterior to the cystic duct. After obtaining a critical view the cystic duct was doubly clipped and divided. The cystic artery was then doubly clipped and divided. The gallbladder was then dissected off the liver bed using electrocautery with an L hook. Hemostasis was assured all times using the electrocautery. When the gallbladder is completely dissected off the liver bed was placed in an Endo-Catch bag and brought out through the epigastric incision. The gallbladder was sent to pathology for further examination. The abdomen was then re-examined. The liver bed was irrigated and suctioned dry. No bleeding or bile leak could be identified. CO2 was then evacuated and all trocars removed. Fascia was closed at the epigastric incision using a [id number] 0 Polysorb suture. Skin was closed in all incisions using a subcuticular 4 0 Polysorb suture by both the surgeon and senior office support assistant sosa. Sterile dressings consisting of Steri-Strips, 2 x 2 gauze, and Tegaderm were then applied. The patient tolerated the procedure well. Sponge instrument and needle counts reported as correct. The patient was transferred to PACU in stable condition.
[2023-09-08] MEDS: ondansetron HCL 4 MG/2 ML VIAL IVPUSH (11:25)
== END 2023-09-08 13:24 | disposition home or self-care (01) ==
PROVIDERS: Nurse Practitioner; Visit Provider Surgery
PROC: 0FT44ZZ Resection of Gallbladder, Percutaneous Endoscopic Approach (ICD-10-PCS; CPT 47562; principal; 2023-09-08 08:30)
DX: K80.64 Calculus of gallbladder and bile duct with chronic cholecystitis without obstruction (principal)
CPT/HCPCS: 47562; 81025; 88304; J0131; J1170; J2250; J2405; J2704; J2795; J3010

== ENCOUNTER → 2023-09-08 07:03 | Outpatient (BNV) | payer OTHER, SELFPAY | PROVIDERS: Visit Provider Surgery | DX: K80.20 Calculus of gallbladder without cholecystitis without obstruction (principal) | CPT/HCPCS: 47562 ==

== ENCOUNTER 2023-09-17 09:44 | Outpatient (AMB) | payer OTHER, SELFPAY ==
--- NOTE | 2023-09-17 09:45 | MHC.OFFVIS ---
Vital Signs 09/17/23 09:51 Height 5 ft 1 in Weight 168 lb 8 oz BMI 31.8 BP 132/76 Blood Pressure Location Lt brachial Position Sitting Pulse 74 Intake Visit Reasons: S/P lap todd Intake Note: Patient is seen in office for post op assessment post laparoscopic cholecystectomy. 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 She tolerated the procedure well. She did report some soreness in the right shoulder for 2 days following the procedure and some discomfort in the epigastric incisions. She reports not taking any of the pain medication. Today she is eating well and denies any nausea or vomiting. Her bowels are normal as well. [facility] Medical History (Updated 09/06/23 @ 11:01 by Janae Johnson RN) Biliary colic Surgical History (Updated 09/15/23 @ 11:33 by ZAINAB Mattson) Hx laparoscopic cholecystectomy (09/08/23) Hx of section Social History Alcohol intake: former Patient Tobacco Use Status: Never used Tobacco Physical Exam Const General: no acute distress GI Other: Soft and nondistended. Trocar incisions are clean, dry and intact. Steri-Strips intact. No evidence of hernia or infection. Assessment & Plan Assessment & Plan (1) Biliary colic: Code(s): K80.50 - Calculus of bile duct without cholangitis or cholecystitis without obstruction Category: Medical Plan Patient tolerated the laparoscopic cholecystectomy well. She should avoid lifting greater than 10 lb for the next week after which he may resume normal activity. She should continue in the low-fat diet as well. She should follow up as needed. Coding Level of Care Code Global (30611) Diagnoses Biliary colic K80.50
[2023-09-17 09:51] VITALS: BP 132/76; PULSE 74; BMI 31.8
== END 2023-09-17 09:54 | disposition home or self-care (01) ==
PROVIDERS: PCP Internal Medicine; Visit Provider Surgery
DX: K80.50 Calculus of bile duct without cholangitis or cholecystitis without obstruction (principal)
CPT/HCPCS: 99024

== ENCOUNTER → 2023-09-17 09:44 | Outpatient (BNVA) | payer OTHER, SELFPAY | PROVIDERS: PCP Internal Medicine; Visit Provider Surgery ==